=== PATIENT | female | born 1990 | race Hispanic/Latino ===

== ENCOUNTER 2018-01-06 15:02 | Emergency (ER) | payer SELFPAY ==
[2018-01-06] MEDS ORDERED: Adacel (T-DAP) 0.5 ML VIAL ONE (15:35)
== END 2018-01-06 15:54 | disposition home or self-care (01) ==
LOC: ERS 15:02
DX: L02.214 Cutaneous abscess of groin (principal); J45.909 Unspecified asthma, uncomplicated; I10 Essential (primary) hypertension; F41.9 Anxiety disorder, unspecified; F32.9 Major depressive disorder, single episode, unspecified; F17.210 Nicotine dependence, cigarettes, uncomplicated
CPT/HCPCS: 10060; 87070; 87205; 90471; 90715

== ENCOUNTER 2025-06-14 20:52 | Emergency (ER) | payer SELFPAY ==
[2025-06-14] MEDS ORDERED: Ketorolac Tromethamine 30 MG (1 mL) VIAL ONE (21:43)
== END 2025-06-14 21:55 | disposition home or self-care (01) ==
LOC: ERS 20:52
DX: M72.2 Plantar fascial fibromatosis (principal); H00.12 Chalazion right lower eyelid; F17.210 Nicotine dependence, cigarettes, uncomplicated
CPT/HCPCS: 96372; 99283; J1885

== ENCOUNTER 2025-06-23 11:11 | Observation (INO) | payer OTHER, SELFPAY ==
[2025-06-23 12:50] LABS: Bacteria/HPF None Seen HPF (None Seen); CAUTI Indications for Culture Pelvic or flank pain; Glucose, Urine (Dipstick) 50 mg/dL (Negative); Leukocyte 25 Leu/uL (Negative); Protein, Urine (Dipstick) 100 mg/dL (Neg-Trace); RBC/HPF None Seen HPF (0-3); Specific Gravity, Urine 1.033 (1.002-1.036)
[2025-06-23 12:54] LABS: Urine Culture Reflex No No
[2025-06-23 16:07] LABS: #Basophils 0.03 10x3/uL (0.0-0.2); #Eosinophils 0.05 10x3/uL (0.0-0.7); #Monocytes 0.41 10x3/uL (0.11-0.59); #Neutrophils 6.49 10x3/uL (1.40-6.50); %Basophils 0.3 % (0.0-1.0); %Eosinophils 0.5 % (0.0-10.0); %Lymphocytes 28.9 % (21.0-51.0); %Monocytes 4.1 % (0.0-10.0); %Neutrophils 65.8 % (42.0-75.0); Hematocrit 35.1 % (36.0-47.0); Hemoglobin 10.5 g/dL (12.0-16.0); Mean Corpuscular Hemoglobin 25.4 pg (27.0-31.0); Mean Corpuscular Volume 85.0 fL (78.0-98.0); Platelet Count 323 10x3/uL (130-400); Red Blood Cell (RBC) Count 4.13 mill/uL (4.20-5.40); White Blood Cell (WBC) Count 9.88 10x3/uL (4.8-10.8)
[2025-06-23 16:30] LABS: ALT (SGPT) 13 U/L (Less than 34); AST (SGOT) 17 U/L (11-34); Albumin 3.7 g/dL (3.1-4.5); Alkaline Phosphatase 67 U/L (40-110); Anion Gap 9 mmol/L (10-20); BUN (Urea Nitrogen) 13 mg/dL (7.0-18.7); Bilirubin, Total 0.3 mg/dL (0.3-1.2); Calc. Creatinine Clearance 0 mL/min (70-130); Calcium 8.9 mg/dL (7.8-10.44); Carbon Dioxide 25 mmol/L (22-29); Chloride 108 mmol/L (98-107); Globulin 2.9 g/dL (2.4-3.5); Glucose 96 mg/dL (70-105); Potassium 3.7 mmol/L (3.5-5.1); Sodium 138 mmol/L (136-145)
[2025-06-23 19:07] LABS: Magnesium 1.8 mg/dL (1.6-2.6)
[2025-06-23 20:14] VITALS: BMI 34.9
[2025-06-24 05:36] LABS: #Basophils 0.04 10x3/uL (0.0-0.2); #Eosinophils 0.24 10x3/uL (0.0-0.7); #Monocytes 0.63 10x3/uL (0.11-0.59); #Neutrophils 3.37 10x3/uL (1.40-6.50); %Basophils 0.5 % (0.0-1.0); %Eosinophils 3.0 % (0.0-10.0); %Lymphocytes 45.4 % (21.0-51.0); %Monocytes 8.0 % (0.0-10.0); %Neutrophils 42.8 % (42.0-75.0); Hematocrit 34.0 % (36.0-47.0); Hemoglobin 10.1 g/dL (12.0-16.0); Mean Corpuscular Hemoglobin 25.1 pg (27.0-31.0); Mean Corpuscular Volume 84.6 fL (78.0-98.0); Platelet Count 269 10x3/uL (130-400); Red Blood Cell (RBC) Count 4.02 mill/uL (4.20-5.40); White Blood Cell (WBC) Count 7.87 10x3/uL (4.8-10.8)
[2025-06-24 05:40] LABS: ALT (SGPT) 10 U/L (Less than 34); AST (SGOT) 12 U/L (11-34); Albumin 3.3 g/dL (3.1-4.5); Alkaline Phosphatase 66 U/L (40-110); Anion Gap 12 mmol/L (10-20); BUN (Urea Nitrogen) 14 mg/dL (7.0-18.7); Bilirubin, Total 0.1 mg/dL (0.3-1.2); Calc. Creatinine Clearance 147 mL/min (70-130); Calcium 8.4 mg/dL (7.8-10.44); Carbon Dioxide 25 mmol/L (22-29); Cardiac Risk 2.9 (Less than 4.5); Chloride 108 mmol/L (98-107); Cholesterol 118 mg/dl (< 200 Desired); Globulin 2.6 g/dL (2.4-3.5); Glucose 108 mg/dL (70-105); HDL Cholesterol 41 mg/dL (>60 Neg Risk); LDL Cholesterol, Calculated 47 mg/dL; Potassium 4.0 mmol/L (3.5-5.1); Sodium 141 mmol/L (136-145); Triglycerides 148 mg/dL (Less than 150)
[2025-06-24] MEDS: Acetaminophen 325 MG TAB PO PRN (08:26)
[2025-06-24] MEDS: Naproxen 500 MG TAB PO SCH (11:05)
[2025-06-24 11:10] VITALS: BP 139/86; TEMP 98.2
[2025-06-26] MEDS ORDERED: FLU (Fluarix Triv) 25-26 (6MOS UP)/PF 45 MCG/0.5 ML Syringe IM ONE (09:00)
== END 2025-06-24 11:59 | disposition home or self-care (01) ==
LOC: ERS 11:11 → OBS 18:19
PROVIDERS: ADMIT Family Medicine; ATTEND Family Medicine
DX: R55 Syncope and collapse (principal); R00.1 Bradycardia, unspecified; L23.9 Allergic contact dermatitis, unspecified cause; J45.909 Unspecified asthma, uncomplicated; D50.9 Iron deficiency anemia, unspecified; Z91.018 Allergy to other foods; Z79.899 Other long term (current) drug therapy
CPT/HCPCS: 36415; 70450; 71045; 80053; 80061; 81001; 83036; 83735; 84100; 84443; 84484; 85025; 93005; G0378